=== PATIENT | male | born 1960 | race Caucasian/White ===

== ENCOUNTER 2021-01-09 10:33 | Day surgery (SDC) | payer BC ==
[2021-01-04 14:37] VITALS: BMI 24.4
[2021-01-09 11:03] VITALS: TEMP 97.8
[2021-01-09 12:55] VITALS: BP 107/71; PULSE 53
== END 2021-01-09 13:20 | disposition home or self-care (01) ==
LOC: FASU-ENDO 10:33
PROVIDERS: ATTEND Internal Medicine Gastroenterology
PROC: 0DJD8ZZ Inspection of Lower Intestinal Tract, Via Natural or Artificial Opening Endoscopic (ICD-10-PCS; principal; 2021-01-09 11:55)
DX: Z12.11 Encounter for screening for malignant neoplasm of colon (principal); K64.1 Second degree hemorrhoids; K64.8 Other hemorrhoids; K57.30 Diverticulosis of large intestine without perforation or abscess without bleeding